=== PATIENT | female | born 1975 | race Caucasian/White ===

== ENCOUNTER 2021-03-05 15:16 | Outpatient (REF) | payer OTHER, SELFPAY | END 2021-03-05 15:17 | disposition home or self-care (01) | LOC: HO.LAB 15:16 | PROVIDERS: PCP Internal Medicine; Visit Provider Internal Medicine | DX: Z00.00 Encounter for general adult medical examination without abnormal findings (principal); I10 Essential (primary) hypertension; J45.909 Unspecified asthma, uncomplicated; N92.4 Excessive bleeding in the premenopausal period | CPT/HCPCS: 36415; 84443 ==

== ENCOUNTER 2021-09-14 11:33 | Outpatient (REF) | payer OTHER, SELFPAY ==
--- NOTE | ~2021-09-14 | MM_ITS ---
EXAMINATION: MM SCREENING DIGITAL BREAST TOMOSYNTHESIS, BILATERAL CLINICAL INFORMATION: Screening. Asymptomatic. Benign ultrasound-guided left breast biopsy 02/16/2019 (benign breast parenchyma with portion of apocrine cyst wall and associated fibrosis with mild chronic inflammation; negative for atypia and malignancy). The lifetime risk of breast cancer based on the Tyrer-Cuzick Model is 12%. COMPARISON: Mammography: 02/16/2019 , 01/18/2019; ultrasound 01/18/2019, ultrasound-guided core biopsy 02/16/2019; outside mammography 07/11/2018, 07/10/2018 ([facility]). TECHNIQUE: Digital breast tomosynthesis is performed in both the craniocaudal and mediolateral oblique views along with computer-aided detection (CAD). Synthesized 2D images are generated from the tomosynthesis. FINDINGS: There are scattered areas of fibroglandular density (ACR BI-RADS breast composition Category b). Parenchymal pattern is similar to outside exam. There is scattered fibronodular densities without significant change. There is no significant mass or architectural abnormality or abnormal calcifications. Biopsy clip marker is again noted mid lower inner left breast. The axilla and skin contours are unremarkable. MM/MM tomosynthesis screening BI IMPRESSION: No significant changes from prior studies. ASSESSMENT: BI-RADS 2: Benign RECOMMENDATION: Routine annual mammography screening. This patient's information was entered into a reminder system with a target due date for their next mammogram.
== END 2021-09-14 11:34 | disposition home or self-care (01) ==
LOC: HO.MAMMO 11:33
PROVIDERS: Visit Provider Internal Medicine
DX: Z12.31 Encounter for screening mammogram for malignant neoplasm of breast (principal)
CPT/HCPCS: 77063; 77067

== ENCOUNTER → 2021-10-08 11:14 | Outpatient (BNVA) | payer OTHER, SELFPAY | PROVIDERS: PCP Internal Medicine; Referring Provider Internal Medicine; Visit Provider Surgery | DX: L72.0 Epidermal cyst (principal) ==

== ENCOUNTER → 2022-03-16 15:20 | Outpatient (BNVA) | payer OTHER, SELFPAY | PROVIDERS: PCP Internal Medicine; Visit Provider Dietitian, Registered | DX: E66.9 Obesity, unspecified (principal); Z68.38 Body mass index [BMI] 38.0-38.9, adult | CPT/HCPCS: 97802 ==

== ENCOUNTER 2022-03-19 09:38 | Outpatient (REF) | payer OTHER, SELFPAY ==
--- NOTE | ~2022-03-19 | XR_ITS ---
EXAMINATION: XR CHEST CLINICAL INFORMATION: Obesity COMPARISON: None TECHNIQUE: 2 views of the chest were obtained. FINDINGS: No significant abnormality is noted involving the heart, lungs, mediastinum, bony thorax or soft tissues. XR/XR chest 2V IMPRESSION: Unremarkable examination.
[2022-03-19 10:05] LABS: MANUAL DIFF FLAG NO
--- NOTE | 2022-03-19 10:09 | ECG_ITS ---
Test Reason : e66.9 Blood Pressure : / mmHG Vent. Rate : 080 BPM Atrial Rate : 080 BPM P-R Int : 152 ms QRS Dur : 094 ms QT Int : 398 ms P-R-T Axes : 028 015 022 degrees QTc Int : 459 ms Normal sinus rhythm Minimal voltage criteria for LVH, may be normal variant ( R in aVL ) Borderline ECG No previous ECGs available Referred By: Gibson Degroot Electronically Signed By:YEVGENIY VALERO MD
[2022-03-19 10:13] LABS: Basophils Percent Auto 0.6 % (0-2); Eosinophils Absolute Auto 0.1 X10*3/uL (0.0-0.4); Hemoglobin 15.7 g/dl (12.0-16.0); Imm Gran Abs Auto 0.01 X10*3/uL (0.00-0.03); Imm Gran Pct Auto 0.1 % (0.0-0.4); Lymphocytes Absolute Auto 1.9 X10*3/uL (1.2-4.9); Lymphocytes Percent Auto 27.5 % (20-40); Mean Corpuscular HGB Conc 34.1 g/dl (31.0-35.0); Mean Corpuscular Hemoglobin 29.3 pg (27.0-33.0); Mean Platelet Volume 10.5 fL (9.4-12.3); Monocytes Absolute Auto 0.5 X10*3/uL (0.1-1.2); Monocytes Percent Auto 7.6 % (2-11); Neutrophils Absolute Auto 4.4 x10*3/uL (2.0-8.3); Neutrophils Percent Auto 63.2 % (45-73); Platelet Count 326 X10*3/uL (160-400); Red Blood Count 5.35 X10*6/uL (4.20-5.50); White Blood Count 6.9 X10*3/uL (4.8-10.8)
[2022-03-19 10:29] LABS: Estimated Average Glucose 105 mg/dL; Hemoglobin A1c % 5.3 %
[2022-03-19 10:41] LABS: Alanine Aminotransferase 59 U/L (0-31); Albumin Level 4.9 g/dL (3.5-5.0); Alkaline Phosphatase 105 U/L (39-117); Anion Gap 20 (12-20); Aspartate Amino Transferase 36 U/L (5-31); Bilirubin Total 0.6 mg/dL (0.0-1.0); Blood Urea Nitrogen 34 mg/dL (9-16); C Reactive Protein 1.66 mg/dL (< or = 0.50); Calcium 10.3 mg/dL (8.4-10.2); Carbon Dioxide 24 mmol/L (22-29); Chloride 101 mmol/L (96-108); Cholesterol 172 mg/dL; Estimated Glomerular Filt Rate 57; Glucose Random 94 mg/dL (60-115); HDL Cholesterol 53 mg/dL; Iron 95 mcg/dL (30-160); LDL Cholesterol Calculated 107 mg/dl; Percent Iron Saturation 25 % (15-50); Potassium 3.8 mmol/L (3.3-5.1); Sodium 141 mmol/L (135-145); Total Iron Binding Capacity 379 mcg/dL (228-428); Total Protein 8.4 g/dL (6.5-8.0); Triglycerides 64 mg/dL; Unsaturated Iron Binding 284 ug/dL
[2022-03-19 11:05] LABS: Ferritin 234 ng/mL (10-250); TSH reflex Free T4 1.06 uIU/mL (0.32-4.0); Vitamin D 25-OH Total 31.7 ng/mL (>30)
[2022-03-19 11:11] LABS: Folate 17.9 ng/mL (> or = 4.0); Vitamin B12 1339 pg/mL (200-900)
[2022-03-19 11:36] LABS: Insulin 33 uU/mL (2-29)
[2022-03-21 12:56] LABS: Calcium (PTHI) 10.2 mg/dL (8.6-10.2); PTHI 59 pg/mL (16-77)
[2022-03-24 06:22] LABS: Zinc 76 mcg/dL (60-130)
[2022-03-24 20:31] LABS: Vitamin A 54 mcg/dL (38-98)
[2022-03-25 06:21] LABS: Vitamin B1 12 nmol/L (8-30)
== END 2022-03-19 09:39 | disposition home or self-care (01) ==
LOC: HO.LAB 09:38
PROVIDERS: PCP Internal Medicine; Visit Provider Surgery
DX: K21.9 Gastro-esophageal reflux disease without esophagitis (principal); E66.9 Obesity, unspecified; Z68.38 Body mass index [BMI] 38.0-38.9, adult; I10 Essential (primary) hypertension
CPT/HCPCS: 36415; 71046; 80053; 80061; 82306; 82607; 82728; 82746; 83036; 83525; 83540; 83970; 84425; 84443; 84590; 84630; 85025; 86140; 93005

== ENCOUNTER → 2022-03-23 15:00 | Outpatient (BNVA) | payer OTHER, SELFPAY | PROVIDERS: PCP Internal Medicine; Visit Provider Counselor Mental Health | DX: F43.20 Adjustment disorder, unspecified (principal); E66.9 Obesity, unspecified; K21.9 Gastro-esophageal reflux disease without esophagitis; I10 Essential (primary) hypertension | CPT/HCPCS: 90791 ==

== ENCOUNTER 2022-03-31 10:51 | Outpatient (REF) | payer OTHER, SELFPAY ==
[2022-04-03 11:12] LABS: H Pylori Breath Test Negative (Negative)
== END 2022-03-31 10:52 | disposition home or self-care (01) ==
LOC: HO.LNP 10:51
PROVIDERS: Visit Provider Surgery
DX: K21.9 Gastro-esophageal reflux disease without esophagitis (principal); E66.9 Obesity, unspecified; Z68.38 Body mass index [BMI] 38.0-38.9, adult; I10 Essential (primary) hypertension
CPT/HCPCS: 83013

== ENCOUNTER 2022-04-14 08:51 | Outpatient (REF) | payer OTHER, SELFPAY ==
--- NOTE | ~2022-04-14 | FL_ITS ---
EXAMINATION: XR FLUOROSCOPY UPPER GI WITH AIR CLINICAL INFORMATION: Obesity COMPARISON: None TECHNIQUE: Upper GI was performed using thin and thick barium and effervescent granules. FINDINGS: Esophageal motility is normal. No hernia is seen. There is gastroesophageal reflux. The stomach and duodenum are normal-appearing. No fold thickening, mass, ulcer or stricture is seen. FLUOROSCOPY TIME: 0.5 minutes DOSE AREA PRODUCT: 4.6 agosto per centimeter squared. 24 saved fluoroscopic images. FL/FL upper GI w air IMPRESSION: Gastroesophageal reflux otherwise unremarkable exam.
--- NOTE | ~2022-04-14 | US_ITS ---
EXAMINATION: US COMPLETE ABDOMEN WITH LIVER ELASTOGRAPHY CLINICAL INFORMATION: Obesity COMPARISON: None. TECHNIQUE: Real-time imaging of the abdominal viscera. Noninvasive ultrasound liver fibrosis assessment is performed using Giovanna ElastPQ point quantification shear wave elastography (2D-SWE) with a C5-2 MHz transducer. Multiple elastography samples are obtained. FINDINGS: PANCREAS: Normal. ABDOMINAL AORTA: The proximal, middle, and distal aortic segments are normal in caliber. INFERIOR VENA CAVA: Visualized portions are normal. LIVER: Liver echotexture is increased probably representing fatty infiltration. There is a 5 mm cyst in the right lobe. There are areas of focal fatty sparing. No other focal lesion or intrahepatic biliary duct dilatation. The right lobe measures 17 cm in length. The left lobe measures 13 cm in length. Portal flow is normal/hepatopedal Shear wave liver elastography median stiffness is 1.5 m/s (reference: normal median stiffness is 1.3 m/s or less). IQR/median stiffness to assess sampling precision is 0.07 (reference: good quality data set is IQR/median stiffness of 0.15 or less). GALLBLADDER: The gallbladder is normal in size. There is a 5 x 3 x 5 mm echogenic density adjacent to the gallbladder wall that does not move or shadow suggestive of gallbladder wall polyp. No definite gallstones.. COMMON BILE DUCT: Normal in caliber measuring 0.5 cm in diameter. RIGHT KIDNEY: Normal. No hydronephrosis. No renal calculi or focal parenchymal lesions. The kidney measures 12 cm in maximum dimension. LEFT KIDNEY: Normal. No hydronephrosis. No renal calculi or focal parenchymal lesions. The kidney measures 11.4 cm in maximum dimension. SPLEEN: Normal. The spleen measures 10.7 cm in maximum dimension. FREE FLUID: None. US/US abdomen comp w elastography IMPRESSION: 1. Impression: Echogenic liver probably representing fatty infiltration. Small cyst in the right lobe of the liver. Small gallbladder wall polyp. 2. Liver elastography: Adequate liver sampling In the absence of other known clinical signs, rules out compensated advanced chronic liver disease. REFERENCE: Society of Radiologists in Ultrasound Liver Stiffness Thresholds (2020): LIVER STIFFNESS THRESHOLDS: *Liver Stiffness equal or less than 1.3 m/s: High probability of being normal. *Liver Stiffness less than 1.7 m/s: In the absence of other known clinical signs, rules out compensated advanced chronic liver disease. *Liver Stiffness 1.7-2.1 m/s: Suggestive of compensated advanced chronic liver disease but need further test for confirmation. *Liver Stiffness over 2.1 m/s: Rules in compensated advanced chronic liver disease. *Liver Stiffness over 2.4 m/s: Suggestive of clinically significant portal hypertension. QUALITY OF DATA SET: *IQR/Median value equal or less than 0.15 implies a quality data set. *IQR/Median value over 0.15 implies a poor quality data set. SIGNIFICANT CHANGE FROM PRIOR EXAM: Significant change if liver stiffness measurement is 10% or greater from prior exam. OTHER CONSIDERATIONS: The stage of liver fibrosis may be overestimated in the setting of acute hepatitis, liver inflammation, elevated liver function tests, hepatic vascular congestion, obstructive cholestasis, non-fasting state, and infiltrative diseases such as amyloidosis and lymphoma. In some patients with NAFLD, the liver stiffness thresholds for compensated advanced chronic liver disease may be lower. In causes other than viral hepatitis and NAFLD, liver stiffness thresholds are not well established.
== END 2022-04-14 08:52 | disposition home or self-care (01) ==
LOC: HO.US 08:51
PROVIDERS: Visit Provider Surgery
DX: Z01.818 Encounter for other preprocedural examination (principal); K21.9 Gastro-esophageal reflux disease without esophagitis; E66.9 Obesity, unspecified; Z68.38 Body mass index [BMI] 38.0-38.9, adult; I10 Essential (primary) hypertension
CPT/HCPCS: 74246; 76705; 76981

== ENCOUNTER → 2022-04-19 14:29 | Outpatient (BNVA) | payer OTHER, SELFPAY | PROVIDERS: PCP Internal Medicine; Visit Provider Dietitian, Registered | DX: E66.9 Obesity, unspecified (principal) | CPT/HCPCS: 97803 ==

== ENCOUNTER → 2022-06-21 08:24 | Outpatient (BNVA) | payer OTHER, SELFPAY | PROVIDERS: PCP Internal Medicine; Visit Provider Surgery | DX: Z13.89 Encounter for screening for other disorder (principal) ==

== ENCOUNTER → 2022-06-22 15:00 | Outpatient (BNVA) | payer OTHER, SELFPAY | PROVIDERS: PCP Internal Medicine; Visit Provider Counselor Mental Health | DX: F43.20 Adjustment disorder, unspecified (principal); E66.9 Obesity, unspecified | CPT/HCPCS: 90832 ==

== ENCOUNTER → 2022-07-02 11:10 | Outpatient (BNVA) | payer OTHER, SELFPAY | PROVIDERS: PCP Internal Medicine; Referring Provider Internal Medicine; Visit Provider Physician Assistant Surgical | DX: Z13.89 Encounter for screening for other disorder (principal) ==

== ENCOUNTER → 2022-07-07 09:11 | Outpatient (BNVA) | payer OTHER, SELFPAY | PROVIDERS: PCP Internal Medicine; Visit Provider Surgery | DX: Z13.89 Encounter for screening for other disorder (principal) ==

== ENCOUNTER → 2022-07-09 13:01 | Outpatient (BNVA) | payer OTHER, SELFPAY | PROVIDERS: PCP Internal Medicine; Visit Provider Surgery | DX: Z13.89 Encounter for screening for other disorder (principal) ==

== ENCOUNTER 2022-07-22 06:10 | Inpatient (IN) | payer OTHER, SELFPAY ==
[2022-07-09 10:14] VITALS: BMI 36.1
[2022-07-15 09:56] LABS: MANUAL DIFF FLAG NO
[2022-07-15 10:30] LABS: Basophils Percent Auto 0.5 % (0-2); Eosinophils Absolute Auto 0.1 X10*3/uL (0.0-0.4); Eosinophils Percent Auto 0.9 % (0-4); Hematocrit 47.6 % (37.0-47.0); Imm Gran Abs Auto 0.04 X10*3/uL (0.00-0.03); Imm Gran Pct Auto 0.5 % (0.0-0.4); Lymphocytes Absolute Auto 2.3 X10*3/uL (1.2-4.9); Lymphocytes Percent Auto 28.3 % (20-40); Mean Corpuscular HGB Conc 33.6 g/dl (31.0-35.0); Mean Corpuscular Hemoglobin 29.4 pg (27.0-33.0); Mean Corpuscular Volume 87.3 fL (80.0-98.0); Mean Platelet Volume 10.8 fL (9.4-12.3); Monocytes Absolute Auto 0.5 X10*3/uL (0.1-1.2); Monocytes Percent Auto 6.8 % (2-11); Neutrophils Absolute Auto 5.1 x10*3/uL (2.0-8.3); Platelet Count 301 X10*3/uL (160-400); Red Blood Count 5.45 X10*6/uL (4.20-5.50); Red Cell Distribution Width 13.2 % (11.0-16.0)
[2022-07-15 10:38] LABS: Partial Thromboplastin Time 33.7 SEC (26.0-36.4)
[2022-07-15 10:51] LABS: Estimated Average Glucose 105 mg/dL; Hemoglobin A1c % 5.3 %
[2022-07-15 11:08] LABS: Alanine Aminotransferase 41 U/L (0-31); Albumin Level 4.7 g/dL (3.5-5.0); Alkaline Phosphatase 108 U/L (39-117); Anion Gap 17 (12-20); Aspartate Amino Transferase 22 U/L (5-31); Bilirubin Total 0.7 mg/dL (0.0-1.0); Blood Urea Nitrogen 35 mg/dL (9-16); C Reactive Protein 2.63 mg/dL (< or = 0.50); Calcium 10.1 mg/dL (8.4-10.2); Carbon Dioxide 24 mmol/L (22-29); Chloride 104 mmol/L (96-108); Cholesterol 191 mg/dL; Estimated Glomerular Filt Rate 56; Glucose Random 76 mg/dL (60-115); HDL Cholesterol 51 mg/dL; LDL Cholesterol Calculated 124 mg/dl; Potassium 4.4 mmol/L (3.3-5.1); Sodium 141 mmol/L (135-145); Triglycerides 81 mg/dL
[2022-07-15 11:29] LABS: Insulin 13 uU/mL (2-29); TSH reflex Free T4 0.88 uIU/mL (0.32-4.0)
--- NOTE | 2022-07-17 20:48 | MHC.SHP ---
Pre-Procedural Eval Section A Date of Service: 07/17/22 The patient is an INPATIENT: Yes The History & Physical has been completed within 30 days and I have reviewed it.: Yes Section B Chief Complaint: Obesity, unspecified Relevant Family History (Specify if Yes): No Relevant Social History: None Present Medications: None Medical History: No relevant PMH History of Previous Operations: No relevant previous surgery Allergies: Allergies Allergy/AdvReac Type Severity Reaction Status Date / Time aspirin Allergy Mild Swelling Verified 07/09/22 10:01 Review of Systems Sugical H&P ROS: Negative: Constitution, Cardiovascular, Respiratory, Neurological, Psychiatric, Hem-Onc, Allergic/Immunologic, Gastrointestinal, Genitourinary, Musculoskeletal, Integumentary, Endocrine and Eyes/Ears/Nose/Throat Exam Surgical H&P Exam: Normal: HEENT, Normal: Heart, Normal: Lungs, Normal: Extremities, Normal: Abdomen, Normal: Skin and Normal: Neurological Plan Diagnosis/Plan: Unchanged I have reviewed the history and physical and performed a pertinent physical examination on my patient. No changes have occurred unless specified. Time Spent With Patient Time: Total time managing care of this patient today ____ minutes.
--- NOTE | 2022-07-21 10:16 | HO.ANESPROP2 ---
Documented by User: Noreen Patel NP 07/21/22 10:18 HPI - Anesthesia Eval Consult details Narrative: 47yo F for Gastrectomy Sleeve,possible diaphragmatic hernia,possible ventral hernia,possible open PMFSH Active Problems Active Problems: All Active Problems (Updated 07/09/22 @ 10:00 by Kathi Blake, RN) Epidermal inclusion cyst (Acute) Obesity (Acute) BMI 38.0-38.9,adult (Acute) Adjustment disorder, unspecified (Acute) BMI 37.0-37.9, adult (Acute) BMI 36.0-36.9,adult (Acute) Hypertension (Acute) GERD (gastroesophageal reflux disease) (Acute) Past Medical History Medical History (Updated 07/09/22 @ 10:00 by Kathi Blake RN) Asthma GERD (gastroesophageal reflux disease) Hypertension PONV (postoperative nausea and vomiting) Family History Family History (Updated 02/23/22 @ 16:11 by Loren Dodson CMA) Mother Hypertension Father Heart attack Surgical History Surgical History History of hysterectomy (03/2021) Social History Social History (Updated 02/23/22 @ 16:12 by Loren Dodson CMA) Are you a primary doggy daycare activities director to a significant other at home: No Do you presently have visiting nurse or other home services: No Alcohol intake: never Patient Tobacco Use Status: Never used Tobacco Second Hand Smoke Exposure: No Use of substances other than those prescribed or required for medical reasons: No Have you been hit, kicked, punched, or otherwise hurt by someone within the past year? If so, by whom?: No Are you DNR?: No Advance Directives: No Advance Directives Information Provided: Yes (Info mailed w/ pre op instructions) Advance Directives on File: No Recently lost weight without trying: No How much weight loss: 2-13 pounds Eating poorly because of decreased appetite: No Nutrition screen score: 1 Nutrition Risks: No Nutritional Risk Patient : No : No Poor oral hygiene: No Meds Allergies Allergy/AdvReac Type Severity Reaction Status Date / Time aspirin Allergy Mild Swelling Verified 07/09/22 10:01 Home Medications Medication Instructions Recorded Confirmed Last Taken Type albuterol sulfate 90 mcg/actuation 2 puff PO QID 10/08/21 07/09/22 Unknown History aerosol inhaler amlodipine 10 mg tablet 10 mg PO DAILY 10/08/21 07/09/22 07/22/22 05:30 History losartan 100 1 tab PO DAILY 10/08/21 07/09/22 Unknown History mg-hydrochlorothiazide 25 mg tablet albuterol sulfate 2.5 mg/3 mL 2.5 mg inhalation Q4-6H PRN 07/09/22 07/09/22 Unknown History (0.083 %) solution for nebulization Wheezing ascorbic acid (vitamin C) 1,000 mg 1,000 mg PO DAILY 07/09/22 07/09/22 Unknown History tablet (Vitamin C) cholecalciferol (vitamin D3) 50 50 mcg PO DAILY 07/09/22 07/09/22 Unknown History mcg (2,000 unit) capsule (Vitamin D3) coenzyme Q10 100 mg capsule 300 mg PO DAILY 07/09/22 07/09/22 Unknown History (CoQ-10) collagen 5,000 PO DAILY 07/09/22 Unknown History multivit with minerals-iron 18 1 tab PO DAILY 07/09/22 07/09/22 Unknown History mg-folic ac 400 mcg-vit K 25 mcg tablet (One Daily Women's) Exam Exam Date and Time: July 21, 2022 1016 Height,Weight and Vital Signs: Height 5 ft 1 in Weight 86.636 kg Pertinent Lab Results Pertinent Lab Results: Laboratory Tests 07/15/22 07/15/22 07/15/22 09:52 09:54 09:54 WBC 8.0 RBC 5.45 Hgb 16.0 Hct 47.6 H MCV 87.3 MCH 29.4 MCHC 33.6 RDW 13.2 Plt Count 301 MPV 10.8 Immature Gran % (Auto) 0.5 H Neut % (Auto) 63.0 Lymph % (Auto) 28.3 Lamb % (Auto) 6.8 Eos % (Auto) 0.9 Baso % (Auto) 0.5 Lymph # (Auto) 2.3 Lamb # (Auto) 0.5 Eos # (Auto) 0.1 Baso # (Auto) 0.0 Abs Immat Gran (auto) 0.04 H Absolute Neuts (auto) 5.1 Absolute Nucleated RBC 0.000 Nucleated RBC % (auto) 0.0 PT 12.0 INR 1.0 APTT 33.7 Sodium Potassium Chloride Carbon Dioxide Anion Gap BUN Creatinine Estim Creat Clear Calc Estimated GFR Random Glucose Estimat Average Glucose Hemoglobin A1c % Insulin Level Calcium Total Bilirubin AST ALT Alkaline Phosphatase C-Reactive Protein Total Protein Albumin Triglycerides Cholesterol LDL Cholesterol, Calc HDL Cholesterol TSH Blood Type O Positive Antibody Screen NEGATIVE 07/15/22 07/15/22 09:54 09:54 WBC RBC Hgb Hct MCV MCH MCHC RDW Plt Count MPV Immature Gran % (Auto) Neut % (Auto) Lymph % (Auto) Lamb % (Auto) Eos % (Auto) Baso % (Auto) Lymph # (Auto) Lamb # (Auto) Eos # (Auto) Baso # (Auto) Abs Immat Gran (auto) Absolute Neuts (auto) Absolute Nucleated RBC Nucleated RBC % (auto) PT INR APTT Sodium 141 Potassium 4.4 Chloride 104 Carbon Dioxide 24 Anion Gap 17 BUN 35 H Creatinine 1.06 Estim Creat Clear Calc 67.0 Estimated GFR 56 Random Glucose 76 Estimat Average Glucose 105 Hemoglobin A1c % 5.3 Insulin Level 13 Calcium 10.1 Total Bilirubin 0.7 AST 22 ALT 41 H Alkaline Phosphatase 108 C-Reactive Protein 2.63 H Total Protein 8.0 Albumin 4.7 Triglycerides 81 Cholesterol 191 LDL Cholesterol, Calc 124 HDL Cholesterol 51 TSH 0.88 Blood Type Antibody Screen Narrative Narrative: EKG 02/2022 Vent. Rate : 080 BPM ? ? Atrial Rate : 080 BPM ?? P-R Int : 152 ms? QRS Dur : 094 ms ? ? QT Int : 398 ms ? ? ? P-R-T Axes : 028 015 022 degrees ?? QTc Int : 459 ms ? Normal sinus rhythm Minimal voltage criteria for LVH, may be normal variant ( R in aVL ) Borderline ECG No previous ECGs available Assessment and Plan Assessment Anesthesia Assessment: Chart Reviewed Documented by User: Maddi Santana MD 07/22/22 07:21 [facility] Past Medical History Medical History (Updated 07/09/22 @ 10:00 by Kathi Blake RN) Asthma GERD (gastroesophageal reflux disease) Hypertension PONV (postoperative nausea and vomiting) Family History Family History (Updated 02/23/22 @ 16:11 by Loren Dodson CMA) Mother Hypertension Father Heart attack Family history of problems with anesthesia: No Surgical History Surgical History History of hysterectomy (03/2021) History of Problems with Anesthesia: No Social History Social History (Updated 02/23/22 @ 16:12 by Loren Dodson CMA) Are you a primary doggy daycare activities director to a significant other at home: No Do you presently have visiting nurse or other home services: No Alcohol intake: never Patient Tobacco Use Status: Never used Tobacco Second Hand Smoke Exposure: No Use of substances other than those prescribed or required for medical reasons: No Have you been hit, kicked, punched, or otherwise hurt by someone within the past year? If so, by whom?: No Are you DNR?: No Advance Directives: No Advance Directives Information Provided: Yes (Info mailed w/ pre op instructions) Advance Directives on File: No Recently lost weight without trying: No How much weight loss: 2-13 pounds Eating poorly because of decreased appetite: No Nutrition screen score: 1 Nutrition Risks: No Nutritional Risk Patient : No : No Poor oral hygiene: No Meds Allergies Allergy/AdvReac Type Severity Reaction Status Date / Time aspirin Allergy Mild Swelling Verified 07/09/22 10:01 Home Medications Medication Instructions Recorded Confirmed Last Taken Type albuterol sulfate 90 mcg/actuation 2 puff PO QID 10/08/21 07/09/22 Unknown History aerosol inhaler amlodipine 10 mg tablet 10 mg PO DAILY 10/08/21 07/09/22 07/22/22 05:30 History losartan 100 1 tab PO DAILY 10/08/21 07/09/22 Unknown History mg-hydrochlorothiazide 25 mg tablet albuterol sulfate 2.5 mg/3 mL 2.5 mg inhalation Q4-6H PRN 07/09/22 07/09/22 Unknown History (0.083 %) solution for nebulization Wheezing ascorbic acid (vitamin C) 1,000 mg 1,000 mg PO DAILY 07/09/22 07/09/22 Unknown History tablet (Vitamin C) cholecalciferol (vitamin D3) 50 50 mcg PO DAILY 07/09/22 07/09/22 Unknown History mcg (2,000 unit) capsule (Vitamin D3) coenzyme Q10 100 mg capsule 300 mg PO DAILY 07/09/22 07/09/22 Unknown History (CoQ-10) collagen 5,000 PO DAILY 07/09/22 Unknown History multivit with minerals-iron 18 1 tab PO DAILY 07/09/22 07/09/22 Unknown History mg-folic ac 400 mcg-vit K 25 mcg tablet (One Daily Women's) Exam Airway Mallampati Class: II TM Dist: >3cm Neck ROM: Full Heart: rrr Lungs: cta Assessment and Plan Assessment Anesthesia Assessment: Anesthesia Plan Discussed Final Anesthetic Review Family History of Problems with Anesthesia: No History of Problems with Anesthesia: No NPO: Yes ASA Class: II Final Preanesthetic Review: No Changes in Pt Med Stat, Meds/Allgs Chart Reviewed, Consent Obtained/Reviewed and Anes Risks/Benef Reviewed Patient Risk: Intermediate Procedure Risk: Intermediate Anesthetic Plan Anesthetic Plan: GA and Regional Block Disposition: Standard PACU
[2022-07-21 13:58] LABS: COVID-19 Test Negative (Negative); IDNOW Serial# 16C4AD1C
[2022-07-22] VITALS (11 sets, daily range): BP systolic 121–145; BP diastolic 61–82; PULSE 76–96; RESP 16–26; TEMP 36.1–37.1; O2SAT 95–100
[2022-07-22] MEDS: Scopolamine 1.5 MG PATCH.TD.3 TRANSDERMA (06:38)
[2022-07-22] MEDS: Lactated Ringers 1,000 ML 999 ML IV (06:46)
--- NOTE | 2022-07-22 07:36 | PM.OP ---
Brief Operative Note Date of Service: 07/22/22 Pre-op diagnosis: Severe obesity with comorbidities (see below) Post-op diagnosis: same Procedure: INITIAL PATIENT BMI ON PRESENTATION AT OUR OFFICE: 38.1 kg/m2 LAST BMI BEFORE SURGERY: 34.8 kg/m2 COMORBIDITIES: GERD, hypertension, liver steatosis, asthma, gallbladder polyp ?The patient presented to the Weight Management Program with significant obesity that was negatively impacting the patient's comorbidities as listed above.? The program is a phased program with a special focus on preoperative medical weight management to promote substantial weight loss and prepare the patients for the second phase of the program: bariatric surgery. The patient participated in an intensive weekly lifestyle ?intervention and exercise program during which the patient ?has lost between the initial office visit and the last preoperative visit 20.5 lbs, or 10% of initial actual body weight. It was deemed appropriate for the patient to now have bariatric surgery. In light of the current Covid-19 pandemic and the well documented strong association of obesity and increased risk of worse outcomes if infected with Covid-19 (REFERENCES:https://pubmed.ncbi.nlm.nih.gov/31634433/,?https://pubmed.ncbi.nlm.nih.gov/13182065/), any delay in undergoing bariatric surgery may lead to the patient's worsening health condition and increased?risk of more severe Covid-19 disease if infected. In addition a recent?study from [facility] published in [facility] on 05/18/2021 ([email or web address]) found that, among patients with obesity, substantial weight loss achieved with surgery was associated with improved outcomes of COVID-19 infection. The findings suggest that obesity can be a modifiable risk factor for the severity of COVID-19 infection. In addition, the patient met the BMI-criteria for bariatric surgery based on the BMI on initial presentation. The patient should not be penalized for achieving such weight loss because ?it is not sustainable long-term without surgical intervention and it was achieved in preparation for bariatric surgery ?under my direction and based on my published research ([email or web address]).[email or web address] and?[email or web address].soard.org/article/[email or web address])17487-X/pdf) ?that a 10% preoperative weight loss improves long-term weight loss after surgery and reduces perioperative complications.? Insurance carriers such as [facility] have endorsed my recommendations ?and have included in their policies criteria to include a 10% preoperative weight loss requirement. PROCEDURE: Esophago-gastroscopy, laparoscopic sleeve gastrectomy and laparoscopic gastropexy INDICATIONS: This is a 47 year-old female who was electively scheduled for laparoscopic, possibly open sleeve gastrectomy. The risks and complications of the procedure were discussed with the patient in advance, particularly the possibility of ; pulmonary embolism; staple line leak; bleeding; GERD; cardiac, pulmonary, or renal complications; as well as long-term problems such as insufficient weight loss, vitamin deficiency, strictures, or ulcers. The patient understood all the risks, and was in agreement to proceed with surgery. DESCRIPTION OF PROCEDURE: After informed consent was obtained from the patient, the patient was given preoperative antibiotics, and was transferred to the operating room. After successful induction of general anesthesia, pneumatic compression devices were placed on both lower extremities. An upper endoscopy was performed next. The oropharynx and esophagus appeared to be within normal limits. There was no diaphragmatic hernia present consistent with the findings of the preoperative upper GI. The stomach was entered. Then after all fluid and air were suctioned and the stomach was fully decompressed, the scope was withdrawn and secured in the mid esophagus. The patient was then prepped and draped in the usual sterile manner, and abdominal access was established at the right upper quadrant with the Sonny technique. A 12 mm blunt port was inserted, and the abdomen was insufflated with CO2 to a pressure of 15 mmHg. Under direct visualization, additional ports were placed, specifically two 5 mm Versi-step ports to the left upper quadrant, and a 5 mm Versi-Step port to the right upper quadrant. 1% lidocaine plain was used to infiltrate all port sites as well as all fascia defects. Following that, the patient was placed in a steep reverse Trendelenburg position. An additional 5 mm port was placed to the right flank for the Mediflex retractor that was used to retract the left lobe of the liver. She had severe hepatomegaly that made exposure quite difficult. The gastro-esophageal fat pad was opened with the ultrasonic device (Thunderbeat, Olympus) and the anterior esophagus and hiatus were exposed. The angle of His was opened with the ultrasonic device the fundus of the stomach from any diaphragmatic and splenic attachments. I then opened the gastrocolic ligament between the transverse colon and the greater curvature of the stomach with the ultrasonic device to enter the lesser sac and facilitate the ligation of the short gastric vessels. I started at a mid-point along the greater curvature and using the Thunderbeat, all short gastric vessels were divided all the way to the angle of His until the left luciana was completely dissected at its entirety. Disection near the upper pole of the spleen was very difficult because the upper pole splenic artery and vein were densely attached to the gastric wall. Nevertheless I was able to separate them without injuring them. I then divided the gastro-colic ligament distally to a distance of about 3-4 cm proximal to the pylorus. The stomach was then divided transversely with one Endo GRISELDA-45 purple, two GRISELDA-45 orange loads and three GRISELDA-60 articulating orange loads using the AEON stapler and loads. Every effort was made that the gastric sleeve had a tubular shape and an even caliber throughout. Once the sleeve resection was completed, the staple line of the gastric sleeve was reinforced with Hemoclips. The resected stomach was retrieved without difficulty from the Sonny port. A gastropexy was then performed in order to prevent postoperative GERD and partial gastric volvulus. Several interrupted 2.0 Surgidac sutures were placed between the sleeve's staple line and the previously divided greater omentum and gastro-colic ligament using the Endo-Stitch device. ?An upper endoscopy was performed. There was no narrowing at the GE junction. The scope was easily advanced all the way to the pylorus which was clearly visualized. There was no narrowing anywhere and the sleeve's caliber was even throughout. The sleeve's staple line was inspected and there was no evidence of ischemia, bleeding or dehiscence. At that point the gastroscope was withdrawn from the patient?s mouth while we were decompressing the bowel and the stomach from any remaining air. I looked into the lesser sac to see how the sleeve was situating and it was situating well. There was no bleeding from the staple line, spleen, or short gastric vessels. The Mediflex retractor was removed, and the undersurface of the liver was inspected and there was no bleeding. The patient was placed in supine position. I closed the fascial defect of the 12 mm port site with a figure of eight #1 Polysorb suture. Then 30cc of Ropivacaine plain with 10 mg of Dexamethasone were used to infiltrate the fascial closure as well as all skin incisions. A total of 7ml of Zynrelef was applied in the Sonny wound. At this point, the abdomen was deflated, all ports were removed under direct vision, and no bleeding was noted from any of the port sites. The skin incisions were irrigated with saline and were closed with 4-0 absorbable monofilament sutures. Steri-Strips and OpSites were used to cover all incisions. The patient was extubated and was transferred in stable condition to the recovery room for further care. I was present and performed all angel parts of the procedure. Ms. Grubbs was the laboratory chemical assistant. There were no residents to assist with this case. Norm Degroot MD, PhD, FACS Surgeon: Gibson Degroot MD Anesthesia: GETA, local and other (TAP block and 7ml Zynrelef) Was an Fire Observer used for this Procedure?: No Fire Observer: Angely Grubbs Estimated blood loss (mL): 10 IV fluids (mL): 2,500 Urine output (mL): 0 (No Mata to record output) Pathology: other (Stomach) Condition: stable Disposition: PACU
--- NOTE | 2022-07-22 07:40 | PM.PNGS ---
Subjective Subjective Date of Service: 07/23/22 Interval history: Patient has mild incisional pain, but was able to ambulate and use the incentive spirometer. She is tolerating phase 1 bariatric diet Physical Exam Vital Signs: Vital Signs: Last Vital Signs Temp 98.7 F 07/22/22 06:35 Pulse 94 07/22/22 06:35 Resp 16 07/22/22 06:35 BP 145/78 H 07/22/22 06:35 Pulse Ox 97 07/22/22 06:35 O2 Del Method 07/22/22 06:35 BMI result Body Mass Index 36.1 GI: Inspection: Yes normal to inspection, Yes incision (clean, dry and intact) and Yes obesity Palpation (GI): Soft to palpation Extrem: Right lower extremity: normal to inspection (no calf tenderness) Left lower extremity: normal to inspection (no calf tenderness) Objective Data Active Medications Albuterol Sulfate (Albuterol Sulfate (0.083%) 2.5 Mg/3 Ml Vial.Neb) 2.5 mg INHALE ONCE PRN PRN Reason: Shortness of Breath/Wheezing Fentanyl (Fentanyl Citrate/Pf 100 Mcg/2 Ml Vial) 25 mcg IVPUSH Q5M PRN; Protocol PRN Reason: Pain, Moderate (Pain Scale 4-6 Lactated Ringer's (Lr) 1,000 mls @ 100 mls/hr IVCONT .Q10H KELSEA Lactated Ringer's (Lr) 1,000 mls @ 999 mls/hr IV .Q1H1M KELSEA Stop: 07/22/22 08:15 Last Admin: 07/22/22 06:46 Dose: 999 mls/hr Documented By: SHADI Ondansetron HCl (Ondansetron Hcl 4 Mg/2 Ml Vial) 4 mg IVPUSH ONCE PRN PRN Reason: Nausea and Vomiting Oxycodone HCl (Oxycodone Hcl Immed Release 5 Mg Tablet) 5 mg PO ONCE PRN PRN Reason: Pain, Severe (Pain Scale 7-10) Labs 07/15/22 09:54 07/15/22 09:54 Labs: Laboratory Results - last 24 hr 07/21/22 13:30 COVID-19 (CAROLINE) Negative COVID-19 Clin Com See Note Procedures Date of Service Date of Service: 07/23/22 Progress Note: A&P Assessment and plan (1) Obesity: Status: Acute Assessment and Plan: s/p laparoscopic sleeve gastrectomy and gastropexy Doing well Check am labs. If OK, will discharge home? (2) BMI 34.0-34.9,adult: Status: Acute (3) Hypertension: Status: Acute (4) GERD (gastroesophageal reflux disease): Status: Acute (5) Steatosis, liver: Status: Acute (6) Gallbladder polyp: Status: Acute (7) Asthma: Status: Acute (8) Hepatomegaly: Status: Acute (9) S/P laparoscopic sleeve gastrectomy: Status: Acute Time Spent With Patient Time: Total time managing care of this patient today ____ minutes. Quality Stroke Does the patient have a stroke diagnosis?: No VTE Prior VTE?: No VTE Risk Level:: Surgical - moderate VTE Device Contraindication: N/A - Device Ordered VTE Drug Contraindication: Treatment Not Indicated
[2022-07-22] MEDS: Lactated Ringers 1,000 ML 100 ML IVCONT ×2 (10:53→19:19)
--- NOTE | 2022-07-22 11:00 | PM.DS ---
DS: Providers Provider Date of Service: 07/23/22 Date of admission: 07/22/22 06:10 Primary care physician: Unknown Physician DS: Diagnosis Discharge Diagnosis (1) Obesity: Status: Acute (2) BMI 34.0-34.9,adult: Status: Acute (3) Hypertension: Status: Acute (4) GERD (gastroesophageal reflux disease): Status: Acute (5) Steatosis, liver: Status: Acute (6) Gallbladder polyp: Status: Acute (7) Asthma: Status: Acute (8) Hepatomegaly: Status: Acute (9) S/P laparoscopic sleeve gastrectomy: Status: Acute DS: Summary Hospital Course Hospital Course: ADMITTING DIAGNOSIS: morbid obesity,?asthma, fatty liver, HTN, GERD DISCHARGE DIAGNOSIS: same, s/p laparoscopic sleeve gastrectomy and gastropexy PAST SURGICAL HISTORY:? PROCEDURE: upper endoscopy, laparoscopic sleeve gastrectomy and gastropexy DISCHARGE SUMMARY: History of Present Illness: The patient is a?47 year-old woman with a BMI of? ?36.1 ? kg/m2 and associated co-morbidities as described above. The patient had extensive work-up, lost 10.4 lbs preoperatively and was electively scheduled for laparoscopic, possible open sleeve gastrectomy and gastropexy. Risks and complications of the surgery were discussed with the patient in advance, particularly the possibility of , pulmonary embolism, anastomotic leak, bleeding, bowel injury, GERD, cardiac, renal or pulmonary complications. The patient understood all the risks and was in agreement with the surgical plan. Hospital Course: The patient underwent an uneventful laparoscopic sleeve gastrectomy with gastropexy on the day of admission. Postoperatively, the patient was transferred to the surgical floor. The patient received IV Acetaminophen and IV dilaudid for pain control. Patient was started on bariatric phase 1 diet POD #0. On postoperative day one, the patient was feeling well without nausea, vomiting, fevers, or tachycardia. The patient had some mild incisional pain and the abdomen was soft.? On the morning of postoperative day one, the patient was continued on 1 ounce of water or ice every half hour. During the day, the patient did fairly well, having some incisional pain, but able to ambulate adequately and to tolerate liquids well. Since the patient is doing well, we decided that the patient was ready to be discharged. The patient was given instructions to follow-up with me next week and to call my office for any fever over 101, persistent abdominal pain, nausea, vomiting, GERD, symptoms of DVT such as calf tenderness, or leg swelling, or pulmonary embolism such as chest pain or shortness of breath.? The patient was also instructed to drink 40-60 ounces of liquids per day using the 1-ounce cups. The patient had been given prescriptions for Tylenol for pain, Zofran prn for nausea, and pantoprazole and carafate previously. The patient was encouraged to ambulate and use the incentive spirometer. The patient was allowed to shower, but no baths, and encouraged to stay active at home. She was instructed to continue her home amlodipine and losartan, and hold HCTZ. All of these instructions were given to the patient personally. All questions were answered and the patient understood all instructions, the instructions were also given to the patient in print. Time Spent with Patient Time attestation: Total time managing care of this patient today ____ minutes. Discharge coordination time: Less than 30 minutes Quality: Safe Use of Opioids Does Pt have an Active Cancer Diagnosis on the Problem List?: No Quality: Stroke Does the patient have a stroke diagnosis?: No Physical Exam Vital Signs: Vital Signs: Last Vital Signs Temp 98.6 F 07/22/22 10:38 Pulse 84 07/22/22 10:48 Resp 22 H 07/22/22 10:48 BP 132/74 07/22/22 10:48 Pulse Ox 99 07/22/22 10:48 O2 Del Method 07/22/22 10:48 O2 Flow Rate 3 07/22/22 10:48 BMI result Body Mass Index 36.1 DS: Data Data Completed and Pending Pending studies at discharge: Pending at discharge 07/22/22 09:22 Surgical [PTH] Routine Labs on day of discharge: Laboratory Results - last 24 hr 07/21/22 13:30 COVID-19 (CAROLINE) Negative COVID-19 Clin Com See Note Discharge Plan Discharge Anticipated Discharge Date/Time: 07/23/22 10:00 Patient Disposition: Home, Self-Care Discharge Diagnosis: s/p laparoscopic sleeve gastrectomy with gastropexy Referrals: Physician,Unknown J [Primary Care Provider] - 1 Week Discharge Medications: Continued albuterol sulfate 2.5 mg /3 mL (0.083 %) Solution For Nebulization 2.5 mg INHALATION Q4-6H PRN (Reason: Wheezing) albuterol sulfate 90 mcg/actuation HFA aerosol inhaler 2 puff PO QID pantoprazole 40 mg tablet,delayed release (DR/EC) 40 mg PO DAILY Qty: 30 2RF sucralfate 100 mg/mL suspension 10 ml PO BID Qty: 400 2RF ondansetron HCl 4 mg tablet 4 mg PO Q12H Qty: 20 0RF Rx Instructions: ONLY use if you have nausea as needed Held amlodipine 10 mg tablet 10 mg PO DAILY Hold Instructions: Resume on 07/24/22. Please check your blood pressure daily and report it to Dr. Degroot. Do not take this medication before you hear back from Dr. Degroot. Do not take this medication if your blood pressure is below 120/70 mmHg. losartan 100 mg tablet 100 mg PO DAILY Qty: 30 2RF Hold Instructions: Resume on 07/24/22. Please check your blood pressure daily and report it to Dr. Degroot. Do not take this medication before you hear back from Dr. Degroot. Do not take this medication if your blood pressure is below 120/70 mmHg. hydrochlorothiazide 25 mg tablet 25 mg PO DAILY Qty: 30 2RF Hold Instructions: Resume on 07/23/22. Please check your blood pressure daily and report it to Dr. Degroot. Do not take this medication before you hear back from Dr. Degroot. Do not take this medication if your blood pressure is below 120/70 mmHg. Discontinued ascorbic acid (vitamin C) [Vitamin C] 1,000 mg Tablet 1,000 mg PO DAILY coenzyme Q10 [CoQ-10] 100 mg Capsule 300 mg PO DAILY cholecalciferol (vitamin D3) [Vitamin D3] 50 mcg (2,000 unit) Capsule 50 mcg PO DAILY One Daily Women's 18 mg iron-400 mcg-25 mcg Tablet 1 tab PO DAILY collagen 5,000 PO DAILY polyethylene glycol 3350 [Miralax] 17 gram powder in packet 17 g PO DAILY Qty: 14 0RF Rx Instructions: Mix each packet with 8oz of water and do 7 packets on 07/20/22 and another 7 packets on 07/21/22 Discharge Orders: Discharge Order (Routine); Ordered 07/23/22 Ordered By: Gibson Degroot Activity on Discharge: No heavy lifting Stand Alone Forms: Patient Portal Discharge page Care Plan Goals: weight loss Health Concerns: obesity Plan of Treatment: No tub baths, sex or returning to work until discussed at first post op appointment. No alcohol, tobacco or illegal drug use. Continue to use incentive spirometer hourly while awake. Walk in home for 5- 10 minutes every 2 hours during the first week. Wear abdominal binder with activity. Follow all meal plan instructions from your bariatric surgeon. Review bariatric handbook and call with any questions. Discharge Instructions 1. Please call your doctor or come back to the emergency room should any new symptoms arise. 2. Activity: abstain from alcohol,? limited stair climbing, no bending, no driving, no exercise, no illicit substances, no lifting, no sex, no tub bath, no work. 4. Diet: follow your bariatric surgeons recommendations for advancing diet. 5. Dressing Change/Wound Care: Your incisions are covered with waterproof dressings. You can shower with these and pat dry. Do not rub over dressings or incisions. If the area is tender, you may apply an ice pack for short intervals (no more than 20 minutes on, followed by at least 20 minutes off). Do not apply heat. Do not use creams, lotions, or topical antibiotics unless instructed to do so by your surgeon. 6. Call your doctor if: - Your temperature exceeds 101.5 F - You experience excessive pain or swelling - You have an unexpected reaction to medication - You have excessive bleeding - You experience continued vomiting/nausea - Your incision begins to separate - Your incision shows signs of infection such as increased redness, swelling, excessive pain, heat, or drainage (light blood or clear fluid is normal) General instructions: No lifting greater than 10 lbs for the next 6 weeks[address] within 24 hours of taking narcotic pain medications. If you do not move your bowels in the next 2 days, please take milk of magnesia over the counter. Please follow the post op diet and do not advance your diet until you are seen in the office in about 2 weeks. Please walk around your home every hour or two to prevent blood clots from forming in your legs. You do not need to wake from sleeping to walk. Please sleep in a bed or couch to prevent kinking at the hips and knees. Please take your incentive spirometer (your lung cashier self service gasoline) home with you and use it for the next few days to prevent pneumonias. You may shower, no hot tubs, baths or swimming pools. Please call the office with any questions or concerns such as increasing abdominal pain, fever, chills, shortness of breath, chest pain, leg pain or swelling, or redness or drainage from your incisions. Please make sure you are consuming 40-60 ounces of total fluids per day. Avoid all carbonation. Do not hesitate to contact the office with any questions at . The patient's medical history has been reviewed and they are considered low risk for post op DVT and therefore DVT prophylaxis is not considered necessary. Travel after surgery was reviewed. The patient has not disclosed any travel plans during the first 30 days after surgery and they have been advised that within the first 30 days after surgery any bus, plane, train or car travel over 2 hours in duration is contraindicated due to the possibility of developing blood clots from immobility. Any travel, needs to include periods of ambulation of 10 minutes in duration every 2 hours.? The patient was instructed to discuss any plans for travel during this period with their bariatric surgeon. Assessment: s/p laparoscopic sleeve gastrectomy with gastropexy Discharge Date/Time: 07/23/22 10:16
[2022-07-22] MEDS: Famotidine/PF 20 MG/2 ML VIAL IVPUSH ×2 (11:01→19:19)
[2022-07-22 11:16] LABS: Hemoglobin 13.8 g/dl (12.0-16.0)
[2022-07-22 11:35] LABS: Anion Gap 16 (12-20); Blood Urea Nitrogen 11 mg/dL (9-16); Calcium 8.9 mg/dL (8.4-10.2); Carbon Dioxide 22 mmol/L (22-29); Chloride 104 mmol/L (96-108); Estimated Glomerular Filt Rate > 60; Glucose Random 114 mg/dL (60-115); Potassium 3.6 mmol/L (3.3-5.1); Sodium 138 mmol/L (135-145)
[2022-07-22] MEDS: ondansetron HCL 4 MG/2 ML VIAL IVPUSH ×2 (12:14→19:18)
[2022-07-22] MEDS: ceFAZolin Sodium/Dextrose,Iso 2 GM/50 ML PIGGYBACK IV (13:24)
[2022-07-22] MEDS: Metoclopramide HCl 10 MG/2 ML VIAL IVPUSH (14:09)
[2022-07-22] MEDS: Acetaminophen 1,000 MG/100 ML PIGGYBACK 16.7 MG IV ×2 (14:13→19:18)
--- NOTE | 2022-07-22 15:40 | PHA.MEDREC ---
med rec done by nursing, pharmacy confirmed with pharmacy claim history, patient too drowsy to answer any questions Pharmacy Consult ? Medication Reconciliation Pharmacy has completed the medication reconciliation.
[2022-07-23] MEDS: Acetaminophen 1,000 MG/100 ML PIGGYBACK 16.7 MG IV ×2 (01:18→05:06)
[2022-07-23] MEDS: ondansetron HCL 4 MG/2 ML VIAL IVPUSH (03:23)
[2022-07-23 03:40] VITALS: BP 139/74; PULSE 69; RESP 18; TEMP 37; O2SAT 99
[2022-07-23] MEDS: Lactated Ringers 1,000 ML 100 ML IVCONT (05:05)
[2022-07-23 06:21] LABS: MANUAL DIFF FLAG NO
[2022-07-23 06:29] LABS: Basophils Percent Auto 0.1 % (0-2); Hematocrit 37.2 % (37.0-47.0); Hemoglobin 12.8 g/dl (12.0-16.0); Imm Gran Abs Auto 0.08 X10*3/uL (0.00-0.03); Imm Gran Pct Auto 0.7 % (0.0-0.4); Lymphocytes Percent Auto 8.6 % (20-40); Mean Corpuscular HGB Conc 34.4 g/dl (31.0-35.0); Mean Corpuscular Hemoglobin 28.8 pg (27.0-33.0); Mean Corpuscular Volume 83.8 fL (80.0-98.0); Mean Platelet Volume 11.1 fL (9.4-12.3); Monocytes Absolute Auto 0.4 X10*3/uL (0.1-1.2); Monocytes Percent Auto 3.5 % (2-11); Neutrophils Absolute Auto 10.6 x10*3/uL (2.0-8.3); Neutrophils Percent Auto 87.1 % (45-73); Platelet Count 284 X10*3/uL (160-400); Red Blood Count 4.44 X10*6/uL (4.20-5.50); Red Cell Distribution Width 12.5 % (11.0-16.0); White Blood Count 12.1 X10*3/uL (4.8-10.8)
[2022-07-23 06:44] LABS: Anion Gap 20 (12-20); Blood Urea Nitrogen 8 mg/dL (9-16); Calcium 9.3 mg/dL (8.4-10.2); Carbon Dioxide 18 mmol/L (22-29); Chloride 106 mmol/L (96-108); Creatinine Clr Calc Pharmacy 92.2; Estimated Glomerular Filt Rate > 60; Glucose Random 94 mg/dL (60-115); Potassium 3.7 mmol/L (3.3-5.1); Sodium 140 mmol/L (135-145)
[2022-07-23 07:21] VITALS: O2SAT 97
[2022-07-23 07:54] VITALS: BP 148/71; PULSE 76; RESP 18; TEMP 37.2; O2SAT 98
[2022-07-23] MEDS: Albuterol Sulfate 90 MCG 8 GM INHALER 2 PUFF INHALE (08:06)
[2022-07-23 08:07] VITALS: PULSE 81; RESP 18; O2SAT 97
[2022-07-23] MEDS: Famotidine/PF 20 MG/2 ML VIAL IVPUSH (08:08)
[2022-07-23] MEDS: amLODIPine Besylate 10 MG TABLET PO (08:08)
[2022-07-23] MEDS: Losartan Potassium 50 MG TABLET 100 MG PO (08:09)
--- NOTE | 2022-07-23 14:52 | HO.POSTANES ---
Post Anesthesia Evaluation Post Anesthesia Evaluation Vital Signs: Vital Signs Temp Pulse Resp BP Pulse Ox O2 Del Method 07/23/22 07:21 97 Room Air 07/23/22 08:07 81 18 07/23/22 07:54 99.0 F 76 18 148/71 H 98 Room Air 07/23/22 03:40 98.6 F 69 18 139/74 99 Room Air Anesthesia: General Endotracheal-GETA Mental Status: Awake Pain Control: Satisfactory (mild incisional pain) Nausea/Vomiting: None Hydration: Adequate Anesthesia-Related Issues: No Anes. Related Issues
== END 2022-07-23 10:16 | disposition home or self-care (01) | DRG 621 ==
LOC: HO.SSSA 10:52 → HO.S3 11:07
PROVIDERS: Physician Assistant Surgical; Admitting Provider Surgery; Visit Provider Surgery
PROC: 0DB64Z3 Excision of Stomach, Percutaneous Endoscopic Approach, Vertical (ICD-10-PCS; CPT 43845; principal; 2022-07-22 07:30)
DX: E66.01 Morbid (severe) obesity due to excess calories (principal); K21.9 Gastro-esophageal reflux disease without esophagitis; I10 Essential (primary) hypertension; K82.4 Cholesterolosis of gallbladder; K76.0 Fatty (change of) liver, not elsewhere classified; J45.909 Unspecified asthma, uncomplicated; Z68.34 Body mass index [BMI] 34.0-34.9, adult; Z20.822 Contact with and (suspected) exposure to COVID-19; Z88.6 Allergy status to analgesic agent; Z79.899 Other long term (current) drug therapy
CPT/HCPCS: 36415; 80048; 80053; 80061; 83036; 83525; 84443; 85014; 85018; 85025; 85610; 85730; 86140; 86850; 86900; 86901; 87635; 88307; 88342; 94640; A4649; C9088; J0131; J0690; J1100; J1170; J2250; J2370; J2405; J2550; J2765; J2795; J3010

== ENCOUNTER → 2022-07-28 12:16 | Outpatient (BNVA) | payer OTHER, SELFPAY | PROVIDERS: PCP Internal Medicine; Referring Provider Internal Medicine; Visit Provider Physician Assistant Surgical | DX: Z13.89 Encounter for screening for other disorder (principal) ==

== ENCOUNTER → 2022-08-19 13:20 | Outpatient (BNVA) | payer OTHER, SELFPAY | PROVIDERS: PCP Internal Medicine; Visit Provider Physician Assistant Surgical | DX: Z13.89 Encounter for screening for other disorder (principal) ==

== ENCOUNTER → 2022-09-02 15:42 | Outpatient (BNVA) | payer OTHER, SELFPAY | PROVIDERS: PCP Internal Medicine; Visit Provider Physician Assistant Surgical | DX: Z13.89 Encounter for screening for other disorder (principal) ==

== ENCOUNTER → 2022-10-07 12:47 | Outpatient (BNVA) | payer OTHER, SELFPAY | PROVIDERS: PCP Internal Medicine; Referring Provider Internal Medicine; Visit Provider Physician Assistant Surgical ==

== ENCOUNTER → 2022-11-11 13:47 | Outpatient (BNVA) | payer OTHER, SELFPAY | PROVIDERS: PCP Internal Medicine; Visit Provider Dietitian, Registered | DX: E66.3 Overweight (principal); Z68.28 Body mass index [BMI] 28.0-28.9, adult; Z98.84 Bariatric surgery status; Z71.3 Dietary counseling and surveillance | CPT/HCPCS: 97803 ==

== ENCOUNTER → 2023-01-31 15:45 | Outpatient (BNV) | payer OTHER, SELFPAY | PROVIDERS: Visit Provider Radiology Diagnostic Radiology | DX: Z12.31 Encounter for screening mammogram for malignant neoplasm of breast (principal) | CPT/HCPCS: 77063; 77067 ==

== ENCOUNTER 2023-01-31 15:47 | Outpatient (REF) | payer OTHER, SELFPAY ==
--- NOTE | ~2023-01-31 | MM_ITS ---
EXAMINATION: MM SCREENING DIGITAL BREAST TOMOSYNTHESIS, BILATERAL CLINICAL INFORMATION: Screening. Asymptomatic. COMPARISON: Mammography: This study is compared with prior exams dating back to 2019. TECHNIQUE: Digital breast tomosynthesis is performed in both the craniocaudal and mediolateral oblique views along with computer-aided detection (CAD). Synthesized 2D images are generated from the tomosynthesis. FINDINGS: There are scattered areas of fibroglandular density (ACR BI-RADS breast composition Category b). There are no significant masses, abnormal calcifications, or other abnormalities. There is a tissue marker in the superior aspect of the left breast from prior benign percutaneous biopsy. MM/MM tomosynthesis screening BI IMPRESSION: No mammographic evidence of malignancy. ASSESSMENT: BI-RADS BI-RADS 2 - Benign Findings RECOMMENDATION: Routine annual mammography screening. 1 year F/U This examination should not preclude the clinical evaluation of a suspicious palpable abnormality. This patient's information was entered into a reminder system with a target due date for their next mammogram.
== END 2023-01-31 15:48 | disposition home or self-care (01) ==
LOC: HO.MAMMO 15:47
PROVIDERS: Visit Provider Internal Medicine
DX: Z12.31 Encounter for screening mammogram for malignant neoplasm of breast (principal)
CPT/HCPCS: 77063; 77067

== ENCOUNTER 2024-03-07 10:11 | Outpatient (AMB) | payer OTHER, SELFPAY ==
--- NOTE | 2024-03-07 10:07 | A.OFFVIS_ITS ---
VS Expanded 03/07/24 10:11 Height 5 ft 1 in Weight 170 lb BMI 32.1 Intake Visit Reasons: (TV) PO LSG 07/22/22 Allergies aspirin Allergy (Mild, Verified 10/07/22 12:55) Swelling Medication List - Last Reconciled 03/07/24 by ANAM Montiel albuterol sulfate 2.5 mg inhalation Q4-6H PRN albuterol sulfate 90 mcg/actuation 2 puffs PO QID amlodipine 10 mg PO DAILY HPI Comments Details: This?is a?48?yo female who is s/p LSG 07/22/2022. Presents for 18 month post op visit. Weight at last visit on 07/22/2022 was 150 pounds with a BMI of 28.3, weight today is 170 pounds, representing a 20 pound weight gain with a BMI today of 32.1.? No complaints of nausea, emesis, abdominal pain or reflux, or constipation. Having a lot of stress, in the process of adopting foster kids. This has resulted in weight gain. Present meal plan includes: scrambled eggs with ham salad with chicken eats rice once a week Exercise routine includes: almost 2 months without exercise likes to use bike COUNT INCLUDES THE [facility] Medical History (Updated 10/07/22 @ 13:14 by ANAM Montiel) PONV (postoperative nausea and vomiting) Asthma Hypertension GERD (gastroesophageal reflux disease) Surgical History History of hysterectomy (03/2021) Family History Mother Hypertension Father Heart attack Social History Are you a primary career development engineer to a significant other at home: No Do you presently have visiting nurse or other home services: No Alcohol intake: never Patient Tobacco Use Status: Never used Tobacco Second Hand Smoke Exposure: No Telehealth Telehealth Telehealth Platform: Telephone Location of provider rendering services: other Location of patient: address on file Patient Identification confirmed using: Name, : Yes Telehealth method: voice only Patient verbally consented to treatment: Yes Patient verbally consented to billing insurance company: Yes Patient informed of any privacy concerns related to visit: Yes Minutes spent on Phone/Video with Pt.: 16 Assessment & Plan Assessment & Plan (1) S/P laparoscopic sleeve gastrectomy: Code(s): Z98.84 - Bariatric surgery status Category: Medical (2) Obesity: Code(s): E66.9 - Obesity, unspecified Category: Medical Plan Pt wants to get back on track with meal plan. Each day have 1 Premier premade shake, 2 small meals of 4 forks protein/4 forks veg, and one snack of protein bar or arabic yogurt. Encouraged her to restart bike for exercise, was previously doing 1 hour/day while watching the news. We discussed that a shake/bar based plan would likely result in better pace of weight loss and worked well for her in the past, she will consider this. Pt struggling with stress/emotional eating, specifically requests support for this. Will schedule appt with [facility]. Labs ordered. RTC 3 months. I spent a total of 30 minutes reviewing/updating records, examining the patient and counseling the patient on weight management as detailed above. Orders: Orders Complete Blood Count Auto Diff Today E66.9 - Obesity, unspecified, Z98.84 - Bariatric surgery status Lipid Panel Today E66.9 - Obesity, unspecified, Z98.84 - Bariatric surgery status IRON PROFILE Today E66.9 - Obesity, unspecified, Z98.84 - Bariatric surgery status Vitamin B12 and Folate Today E66.9 - Obesity, unspecified, Z98.84 - Bariatric surgery status C Reactive Protein Today E66.9 - Obesity, unspecified, Z98.84 - Bariatric surgery status Vitamin D 25-OH Total Today E66.9 - Obesity, unspecified, Z98.84 - Bariatric surgery status Insulin Today E66.9 - Obesity, unspecified, Z98.84 - Bariatric surgery status Hemoglobin A1c Today E66.9 - Obesity, unspecified, Z98.84 - Bariatric surgery status Comprehensive Met. Panel Today E66.9 - Obesity, unspecified, Z98.84 - Bariatric surgery status Zinc Today E66.9 - Obesity, unspecified, Z98.84 - Bariatric surgery status Vitamin B1 Today E66.9 - Obesity, unspecified, Z98.84 - Bariatric surgery status Vitamin A Today E66.9 - Obesity, unspecified, Z98.84 - Bariatric surgery status TSH reflex Free T4 Today E66.9 - Obesity, unspecified, Z98.84 - Bariatric surgery status Ferritin Today E66.9 - Obesity, unspecified, Z98.84 - Bariatric surgery status
[2024-03-07 10:11] VITALS: BMI 32.1
== END 2024-03-07 10:25 | disposition home or self-care (01) ==
LOC: HO.HBS 10:11
PROVIDERS: Visit Provider Physician Assistant Surgical
DX: E66.811 Obesity, class 1 (principal); Z68.32 Body mass index [BMI] 32.0-32.9, adult; Z90.3 Acquired absence of stomach [part of]; Z98.84 Bariatric surgery status
CPT/HCPCS: 99442

== ENCOUNTER → 2024-03-07 10:11 | Outpatient (BNVA) | payer OTHER, SELFPAY | PROVIDERS: Visit Provider Physician Assistant Surgical ==

== ENCOUNTER 2024-05-14 15:07 | Outpatient (REF) | payer OTHER, SELFPAY ==
--- OUTSIDE RECORDS SUMMARY | 2024-05-14 15:10 | XMS_ITS | Continuity of Care Document ---
Author Organization [facility] On[facility] Address [address] [place] [address]- Care Team Providers Care Electro Optics Engineer Name Role Phone Cordell BALDERRAMA, Samantha Roberts Primary Care Physician [phone] [id number] Date(s): 12/14/23 - 04/14/24 [facility] Oncology [address] [place] [address] Attending Physician: Pratibha Nicole Admitting Physician: Pratibha Nicole Encounter Type: Pre-OutPatient One Time Allergies, Adverse Reactions, Alerts Substance Criticality Severity Reaction Reaction Severity Status aspirin C/O: a swelling Acti ve Medications Albuterol (Eqv-ProAir HFA) 90 mcg/inh inhalation aerosol 2 puffs, Inhalation, Every 6 hours, 0 Refills, Maintenance, 03/25/21 4:07:00 PM EDT, Partial fill upon patient request if the prescription is for a schedule II opioid drug. Start Date: 03/25/21 Status: Ordered Repeat number: 1 amLODIPine 10 mg oral tablet 1 tablet = 10 mg, By Mouth, Daily, # 30 tablet, 0 Refills, Maintenance, 06/25/15 8:11:37 AM EST, Tablet Start Date: 06/25/15 Status: Ordered Quantity: 30.0 Unit: tablet Repeat number: 1 losartan 25 mg oral tablet 25 mg, 1, tablet, By Mouth, Daily, # 30 tablet, Refills 0, Maintenance, 10/10/20 12:53:00 PM EDT, Partial fill upon patient request if the prescription is for a schedule II opioid drug. Start Date: 10/10/20 Status: Ordered Quantity: 30.0 Unit: tablet Repeat number: 1 Multivitamin Daily, 0 Refills, Maintenance, 03/25/21 4:05:00 PM EDT, Partial fill upon patient request if the prescription is for a schedule II opioid drug. Start Date: 03/25/21 Status: Ordered Repeat number: 1 Sudhakar Readi-Cat 2 oral suspension See Instructions, If scan before 12pm drink 1st drink night before prior to midnight & 2nd drink 90mins before.If scan after 12pm drink first drink before 8am and 90mins before.If scan after 4pm drink first drink 6hrs and 90mins before., # 2 each, 0 Refills, Maintenance, 10/15/21 8:48:00 AM EDT,[facility]/pharmacy #[id number], Partial fill upon patient request if the prescription is for a schedule II opioid drug., If scan before 12pm drink 1st drink night before prior to midnight & 2nd drink 90mins before.If scan after 12pm drink first drink before 8am and 90mins before.If scan after 4pm drink first drink 6hrs and 90mins before., 154.3, cm, 10/13/21 11:05:00 EDT, Height, 89.5, kg, 10/13/21 11:05:00 EDT, Dry Weight Start Date: 10/15/21 Status: Ordered Quantity: 2.0 Unit: each Repeat number: 1 Vitamin D3 2000 intl units oral tablet 1 tablet = 2,000 International_Units, By Mouth, Daily, 0 Refills, Maintenance, 08/26/15 12:55:11 PM EDT Start Date: 08/26/15 Status: Ordered Repeat number: 1 Problem List Condition Confirmation Course Effective Dates Status Health St atus Informant Hypertension Confirmed Active Endometrial cancer, grade I Confirmed Active Obese class II Confirmed Active Social History Social History Type Response Smoking Status Never smoker entered on: 06/25/15 Sex Sex Representation Female (finding) Patient Care team information Care Team Personnel Name: Samantha Landa MD Position: [facility] Outreach Member Role: PCP Address: [address] [place] [address]- Telecom: Name: Bernice Nicole RN Position: [facility] RN Member Role: Primary Care Nurse Name: Bradly Gomez MD Position: [facility] Renal MD Member Role: Lifetime Consulting Physician Address: [address] [facility] [place], [place] [address] Telecom: Care Team Related Persons Name: MARCELINO ESPINOZA Name: MARCELINO GRIMALDO Insurance Providers Guarantor name: LUCAS PATEL Health Plan Information #: 1 Payer: Angle POS Member Number: [id number] Policy Number: NA Group Number: [id number] Health Plan Information #: 2 Payer: [employer] JungleO POS Member Number: [id number] Policy Number: NA Group Number: [id number]
--- OUTSIDE RECORDS SUMMARY | 2024-05-14 15:10 | XMS_ITS | Continuity of Care Document ---
Author Organization [facility] Address [address] [place] [address]- Care Team Providers Care Critical Care Physician Name Role Phone Cordell BALDERRAMA, Samantha Roberts Primary Care Physician En[place] [facility](s): 03/15/24 - 04/14/24 [facility] AIDE Oncology [address] [place] [address]- Attending Physician: Carol Kovacs Admitting Physician: Carol Kovacs Referring Physician: AdmtrCarol Encounter Type: Triage Allergies, Adverse Reactions, Alerts Substance Criticality Severity [...] each, 0 Refills, Maintenance, 10/15/21 8:48:00 AM EDT,[facility]/pharmacy #[id number], Partial fill upon patient request if [...] Team Personnel Name: Samantha Landa MD Position: [facility] Outreach Member Role: PCP Address: [address] [place] [address]- Telecom: Name: Bernice Nicole RN Position: [facility] RN Member Role: Primary Care Nurse Name: Bradly Gomez MD Position: [facility] Renal MD Member Role: Lifetime Consulting Physician Address: [address] [facility] [place], [place] [address] Telecom: Care Team Related Persons Name: MARCELINO ESPINOZA Name: MARCELINO GRIMALDO Insurance Providers Guarantor name: LUCAS PATEL Health Plan Information #: 1 Payer: NEIL O POS Member Number: NA Policy Number: NA Group Number: NA
== END 2024-05-14 15:08 | disposition home or self-care (01) ==
LOC: HO.MAMMO 15:07
PROVIDERS: PCP Internal Medicine; Visit Provider Internal Medicine
DX: Z12.31 Encounter for screening mammogram for malignant neoplasm of breast (principal)
CPT/HCPCS: 77063; 77067

== ENCOUNTER → 2024-05-14 15:15 | Outpatient (BNV) | payer OTHER, SELFPAY | PROVIDERS: PCP Internal Medicine; Visit Provider Internal Medicine | DX: Z12.31 Encounter for screening mammogram for malignant neoplasm of breast (principal) | CPT/HCPCS: 77063; 77067 ==

== ENCOUNTER 2024-06-12 09:49 | Outpatient (AMB) | payer OTHER, SELFPAY ==
--- NOTE | 2024-06-12 09:47 | A.OFFVIS_ITS ---
VS Expanded 06/12/24 09:51 Height 5 ft 1 in Weight 168 lb BMI 31.7 Intake Visit Reasons: TELEPHONE PO LSG 07/22/22 Allergies aspirin Allergy (Mild, Verified 10/07/22 12:55) Swelling Medication List - Last Reconciled 06/12/24 by ANAM Montiel albuterol sulfate 2.5 mg inhalation Q4-6H PRN albuterol sulfate 90 mcg/actuation 2 puffs PO QID amlodipine 10 mg PO DAILY simethicone (Gas Relief (simethicone)) 80 mg PO TID-QID PRN HPI Comments Details: This?is a?49?yo female who is s/p LSG 07/22/2022. Presents for 1 year 10 month post op visit. Weight at last visit on 03/07/2024 was 170 pounds with a BMI of 32.1, weight today is 168 pounds, representing a 2 pound weight loss with a BMI today of 31.7.? No complaints of nausea, emesis, abdominal pain or reflux, or constipation. Was in the process of adoption for 2 children, hoping to be official in 2-3 months. Present meal plan includes: 1 Premier premade shake, 2 small meals of 4 forks protein/4 forks veg, and one s nack of protein bar or v[place] citizen yogurt -has been eating a small portion of overnight oats and coffee, lunch- chicken and rice, dinner- cauliflower and asparagus with chicken -thinks she is still a little low in protein intake, also likes eggs for breakfast Exercise routine includes: using bike 1 hour watching the news [facility] Medical History (Updated 10/07/22 @ 13:14 by ANAM Montiel) PONV (postoperative nausea and vomiting) Asthma Hypertension GERD (gastroesophageal reflux disease) Surgical History History of hysterectomy (03/2021) Family History Mother Hypertension Father Heart attack Social History Are you a primary aged or disabled carer to a significant other at home: No Do you presently have visiting nurse or other home services: No Alcohol intake: never Patient Tobacco Use Status: Never used Tobacco Second Hand Smoke Exposure: No Telehealth Telehealth Telehealth Platform: Telephone Location of provider rendering services: practice address Location of patient: address on file Patient Identification confirmed using: Name, : Yes Telehealth method: voice only Patient verbally consented to treatment: Yes Patient verbally consented to billing insurance company: Yes Patient informed of any privacy concerns related to visit: Yes Minutes spent on Phone/Video with Pt.: 15 Assessment & Plan Assessment & Plan (1) Obesity: Code(s): E66.9 - Obesity, unspecified Category: Medical (2) S/P laparoscopic sleeve gastrectomy: Code(s): Z98.84 - Bariatric surgery status Category: Surgical Plan Sent pt options for protein water, goal 70g protein day. She prefers not to use bars/shakes, has grown tired of them. She has resumed exercise. Reminded to have labs drawn. RTC 3 months. I spent a total of 30 minutes reviewing/updating records, examining the patient and counseling the patient on weight management as detailed above. Medications: New simethicone (Gas Relief (simethicone)) 80 mg PO TID-QID PRN 90 tabs 2RF abdominal distention
[2024-06-12 09:51] VITALS: BMI 31.7
--- OUTSIDE RECORDS SUMMARY | 2024-06-12 10:51 | XMS_ITS | Patient Health Record ---
Author Organization [employer] [facility] Address [address] [place] [address] Care Team Providers Care Fire Management Specialist Name Role Phone Kathe Horvath Unavailable [phone] Reason For Referral No Information Medications Medication SIG (Take, Route, Frequency, Duration) Notes Start Date End Date Status Norvasc 5MG 1 ORAL daily for -3 [facility] 12/22/2011 Active Vitamins 1 mg folate 1 ORAL daily for -3 [facility] 07/18/2012 Active Immunizations Vaccine Route Administration Date Status Comme nts Influenza, live, intranasal Intramuscular 06/23/2011 Pendi ng Tdap Intramuscular 06/23/2011 Pending Problems Problem Type SNOMED Code ICD Code Onset Dates Problem Status W/U Status Risk Notes Problem Anxiety state (661616529) Anxiety state, unspecified (300.00) Active confirmed Major Problem Migraine (disorder) (14670462) Migraine, unspecified without mention of intractable migraine without mention of status migrainosus (346.90) Active confirmed Diag Problem Benign essential hypertension (5784169) Essential hypertension, benign (401.1) Active confirmed Diag Problem Essential hypertension (20774081) Unspecified essential hypertension (401.9) Active confirmed Major Problem Palpitations (37961011) Palpitations (785.1) Active confirmed Diag Problem Cervicovaginal cytology: Low grade squamous intraepithelial lesion (063067890) Papanicolaou smear of cervix with low grade squamous intraepithelial lesion (LGSIL) (795.03) Active confirmed Major Problem Elevated blood pressure reading without diagnosis of hypertension (968982204) Elevated blood pressure reading without diagnosis of hypertension (796.2) Active confirmed Major Problem Gynecological examination normal (521981949492130) Routine gynecological examination (V72.31) Active confirmed Diag Problem Contraception care education (723247158) Other general counseling and advice for contraceptive management (V25.09) Active confirmed Diag Problem Dietary management surveillance (745709460) Dietary surveillance and counseling (V65.3) Active confirmed Diag Problem Exercises teaching, guidance, and counseling (779348375) Exercise counseling (V65.41) Active confirmed Diag Problem Counseling for substance abuse (249103794) Counseling on substance use and abuse (V65.42) Active confirmed Diag Plan Of Treatment No Information Insurance Providers Payer Name Payer Address Payer Phone Subscriber Number Group Number Insured Name Patient Relationship to Insured Coverage Start Date Coverage End Date [employer] [address] [address] [place] [address] [id number] LUCAS PATEL Self - patient is the insured
--- OUTSIDE RECORDS SUMMARY | 2024-06-12 10:51 | XMS_ITS | Clinical Summary ---
Author Organization [facility] Address [address] [place] [address] Care Team Providers Care Packing Supervisor Name Role Phone Janneth Ramos DMD Primary Care Provider [phone] Source Comments PLEASE NOTE, if this patient is a minor, it may be UNLAWFUL to discuss sensitive information that is contained in these records (such as FAMILY PLANNING, MENTAL HEALTH or SUBSTANCE ABUSE) with the minor patient's parent or other person without the patient's specific authorization.[facility] Medications No known medications Active Problems No known active problems Social History Tobacco Use Types Packs/Day Years Used Date Smoking Tobacco: Never Smokeless Tobacco: Never Tobacco Cessation:Counseling Given: Not Answered Social Connections Answer Date Recorded Connectedness 0 02/10/2024 Financial Resource Strain Answer Date R ecorded Financial Resource Strain 0 2022 Stress Answer Date Recorded Stress 0 12/02/2022 Physical Activity Answer Date Recorded Physical Activity 0 12/02/2022 Food Insecurity Answer Date Recorded Food 0 02/16/2024 Transportation Needs Answer Date Record ed Transportation 0 12/02/2022 Housing Stability Answer Date Recorded Housing 0 12/02/2022 Safety and Environment Answer Date Jose Luis rded Safety 0 12/02/2022 Utilities Answer Date Recorded Utilities 0 12/02/2022 Employment Answer Date Recorded Stress 0 02/10/2024 Comments Unknown Sex and Gender Information Value Date Recorded Sex Assigned at Not on file Legal Sex Female 7:12 AM PDT Gender Identity Not on file Sexual Orientation Not on file Last Filed Vital Signs Vital Sign Reading Time Taken Comments Blood Pressure 151/97 07/12/2023 3:19 PM EST Pulse 78 07/12/2023 3:19 PM EST Temperature - - Respiratory Rate - - Oxygen Saturation - - Inhaled Oxygen Concentration - - Weight - - Height - - Body Mass Index - - Plan of Treatment Health Maintenance Due Date Last Done Comments Dental FMX/Pano 1977 Diabetes Screening 1977 HPV Screening 1977 Hepatitis C Screening 1977 Lipid Screening 1977 Pap + HPV 1977 HIV Screening 1992 Relationship Safety Screening/Counseling 1992 Annual Preventive Care Visit 1995 Imm-DTaP/Tdap/Td (1 - Tdap) 1996 Imm-Hepatitis B (1 of 3 - 19 + 3-dose series) 1996 Cervical Cancer Screening 1998 Pap Smear 1998 Breast Cancer Screening (Mammogram) 2017 CT Colonography 2022 Colonoscopy 2022 Colorectal Cancer Screening 2022 FIT/gFOBT 2022 Fecal DNA 2022 Flexible Sigmoidoscopy 2022 Dental BW 12/05/2023 12/02/2022 Dental Examination 12/05/2023 12/02/2022 Dental Perio Charting 12/05/2023 12/02/2022 [id number] ( season) 2024 Imm-Influenza (#1) 2024 Alcohol and Drug Screen 05/23/2024 Depression Annual Screen 05/23/2024 Dental Prophy 06/17/2024 06/15/2023, 12/02/2022 Hypertension Screening (#1) 07/11/2024 Tobacco Screening 07/12/2024 07/12/2023 Cervical Ablation/Cold-Knife Conization Discontinued Cervical Cryotherapy Discontinued Colposcopy Discontinued Endometrial Biopsy Discontinued Excision/Leep Discontinued HPV Genotyping Discontinued Vaginal Pap Discontinued Vulvoscopy Discontinued Procedures Procedure Name Priority Date/Time Associated Diagnosis Comments Full PROPHYLAXIS - ADULT Routine 06/15/2023 1:00 PM EST Stage 2 grade B localized periodontitis per AAP/EFP 2017 classification COMP PERIODONTAL EVALUATION - NEW/EST PATIENT Routine 12/02/2022 3:00 PM EDT Encounter for dental examination and cleaning without abnormal findings BITEWINGS - FOUR RADIOGRAPHIC IMAGES Routine 12/02/2022 3:00 PM EDT Chronic gingivitis, plaque induced Fractured dental orthodoxy with loss of material Encounter for dental examination and cleaning without abnormal findings Stage 2 grade B localized periodontitis per AAP/EFP 2017 classification PERIODIC ORAL EVALUATION ESTABLISHED PATIENT Routine 12/02/2022 3:00 PM EDT Chronic gingivitis, plaque induced Encounter for dental examination and cleaning without abnormal findings Stage 2 grade B localized periodontitis per AAP/EFP 2017 classification from Last 3 Months or Most Recently Relevant to Health Maintenance Care Teams Packing Supervisor Relationship Specialty Start Date End Date Janneth Ramos DMD [address] [place] [address] PCP - General 08/01/20
== END 2024-06-12 10:06 | disposition home or self-care (01) ==
LOC: HO.HBS 09:49
PROVIDERS: PCP Internal Medicine; Visit Provider Physician Assistant Surgical
DX: E66.9 Obesity, unspecified (principal); Z98.84 Bariatric surgery status
CPT/HCPCS: 99214

== ENCOUNTER → 2024-06-12 09:49 | Outpatient (BNVA) | payer OTHER, SELFPAY | PROVIDERS: PCP Internal Medicine; Visit Provider Physician Assistant Surgical ==

== ENCOUNTER 2025-03-29 08:10 | Day surgery (SDC) | payer OTHER, SELFPAY ==
--- OUTSIDE RECORDS SUMMARY | 2025-02-26 14:23 | XMS_ITS | Patient Health Record ---
Author Organization [facility] Address [address] [place] [phone] Care Team Providers Care Land Manager Name Role Phone John Landama Primary Care Provider Unavailab Glynn Kennedy [phone] Allergies No Known Allergies Reason For Referral No Information Medications Medication SIG (Take, Route, Frequency, Duration) Notes Start Date End Date Status Losartan Potassium 10 MG/ML as directed Orally Active amLODIPine Besylate 5 MG 1 tablet Orally Once a day Active Social History Tobacco Use: Social History Observation Description Date Details (start date - stop date) Never Smoker NA - NA Tobacco Control (Standard) Question Answer Notes Tobacco use: Nonsmoker AUDIT-C (Standard) Question Answer Notes Did you have a drink containing alcohol in the p ast year? No Points 0 Interpretation Negative Section Notes: Nonsmoker; no alcohol Problems Problem Type SNOMED Code ICD Code Onset Dates Problem Status W/U Status Risk Notes Problem Colon cancer screening (786193289) Colon cancer screening (Z12.11) Active confirmed Problem Preprocedural examination (906566186158612) Preprocedural examination (Z01.818) Active confirmed Vital Signs Heart Rate 84 /min 01/02/2025 Blood pressure diastolic 01 mm Hg 01/02/2025 Height 61.5 in 01/02/2025 Blood pressure systolic 01 mm Hg 01/02/2025 Weight 177.8 lbs 01/02/2025 BMI 33.05 kg/m2 01/02/2025 Procedures Procedure Date Ordered Date Performed Result Body Sit e COLONOSCOPY 01/02/2025 N/A Encounters Encounter Location Date Provider Diagnosis [facility] [address] [place] [phone] 01/02/2025 Glynn Ho Colon cancer screeni ng Z12.11 and Preprocedural examination Z01.818 Assessments Encounter Date Diagnosis (ICD Code) Assessment Notes Treatment Notes Treatment Clinical Notes Section Notes 01/02/2025 Colon cancer screening (ICD-10 - Z12.11) Overall, Lucas appears well. She is not having any new or worrisome GI complaints. Given her age and good clinical appearance I did recommend a colonoscopy for screening purposes. We did review the rationale for this in regard to colon cancer prevention. Full consent has been obtained for this, including risks of bleeding and perforation. The procedure will be done with monitored anesthesia care. Lucas was comfortable with this plan. Thank you again for allowing me to participate in Lucas's care. I shall continue to keep you advised of her progress. 01/02/2025 Preprocedural examination (ICD-10 - Z01.818) Overall, Lucas appears well. She is not having any new or worrisome GI complaints. Given her age and good clinical appearance I did recommend a colonoscopy for screening purposes. We did review the rationale for this in regard to colon cancer prevention. Full consent has been obtained for this, including risks of bleeding and perforation. The procedure will be done with monitored anesthesia care. Lucas was comfortable with this plan. Thank you again for allowing me to participate in Lucas's care. I shall continue to keep you advised of her progress. Plan Of Treatment Pending Test Test Name Order Date COLONOSCOPY 01/02/2025 Next Appt Details Provider Name:Glynn Ho , 03/29/2025 11:30:00 AM, [address] [place] [address] , [place], [place], [phone], Insurance Providers Payer Name Payer Address Payer Phone Subscriber Number Group Number Insured Name Patient Relationship to Insured Coverage Start Date Coverage End Date [employer]IL [employer]ON [id number] [place], [place] [address] [id number] LUCAS PATEL Self - patient is the insured 1 Medical (General) History Medical History History ICD Code HTN Asthma Denies PR,DM,CVA,renal disease Endometrial cancer-Stage 1-s urgery as below with Hysterectomy---History from PCP's office note Surgical History Surgery Date(Month/Year) Hysterectomy 2021 Bariatric surgery 2023--Gastric Sleeve-a t [facility]-80_# weight loss
--- OUTSIDE RECORDS SUMMARY | 2025-02-26 14:23 | XMS_ITS | Clinical Summary ---
Author Organization [facility] Address [address] [place] [address] Care Team Providers Care Continuous Pillowcase Cutter Name Role Phone Janneth Ramos DMD Primary Care Provider [phone] Source Comments PLEASE NOTE, if this patient [...] Health Maintenance Due Date Last Done Comments Anxiety Screening 1977 Dental FMX/Pano 1977 Diabetes Screening 1977 HPV Screening 1977 Hepatitis C Screening 1977 Lipid Screening 1977 Pap + HPV 1977 Tobacco Screening 1977 HIV Screening 1992 Relationship Safety Screening/Counseling 1992 Imm-DTaP/Tdap/Td (1 - Tdap) 1996 Imm-Hepatitis B (1 of 3 - 19 + 3-dose series) 1996 Cervical Cancer Screening 1998 Pap Smear 1998 Breast Cancer Screening (Mammogram) 2017 CT Colonography 2022 Colonoscopy 2022 Colorectal Cancer Screening 2022 FIT/gFOBT 2022 Fecal DNA 2022 Flexible Sigmoidoscopy 2022 Dental BW 12/05/2023 12/02/2022 Dental Examination 12/05/2023 12/02/2022 Dental Perio Charting 12/05/2023 12/02/2022 Alcohol and Drug Screen 05/23/2024 Depression Annual Screen 05/23/2024 Dental Prophy 06/17/2024 06/15/2023, 12/02/2022 Hypertension Screening (#1) 07/11/2024 [id number] ( season) 2025 Imm-Influenza (#1) 2025 Cervical Ablation/Cold-Knife Conization Discontinued Cervical Cryotherapy Discontinued [...] EDT Chronic gingivitis, plaque induced Fractured dental congregation with loss of material Encounter for dental [...] or Most Recently Relevant to Health Maintenance Insurance [employer] Care Teams Continuous Pillowcase Cutter Relationship Specialty Start Date End Date Janneth Ramos DMD [address] [place] [address] PCP - General 08/01/20
--- OUTSIDE RECORDS SUMMARY | 2025-02-26 14:23 | XMS_ITS | Patient Health Record ---
Author Organization [employer] [facility] Address [address] [place] [address] Care Team Providers Care Stationary Engineer Refrigeration Name Role Phone Kathe Horvath Unavailable [phone] Reason For Referral No Information Medications Medication SIG (Take, Route, Frequency, Duration) Notes Start Date End Date Status Norvasc 5MG 1 ORAL daily; Durati on: -3 Tim-MJ 12/22/2011 Active Vitamins 1 mg folate 1 ORAL daily; Duration: -3 Tim-MJ 07/18/2012 Active Immunizations Vaccine Route Administration Date Status Comme nts Influenza, live, intranasal Intramuscular 06/23/2011 Pendi ng Tdap Intramuscular 06/23/2011 Pending Problems Problem Type SNOMED Code ICD Code Onset Dates Problem Status W/U Status Risk Notes Problem Anxiety state (049838628) Anxiety state, unspecified (300.00) Active confirmed Major Problem Migraine (disorder) (47090687) Migraine, unspecified without mention of intractable migraine without mention of status migrainosus (346.90) Active confirmed Diag Problem Benign essential hypertension (3956979) Essential hypertension, benign (401.1) Active confirmed Diag Problem Essential hypertension (75221245) Unspecified essential hypertension (401.9) Active confirmed Major Problem Palpitations (14294244) Palpitations (785.1) Active confirmed Diag Problem Cervicovaginal cytology: Low grade squamous intraepithelial lesion (037742671) Papanicolaou smear of cervix with low grade squamous intraepithelial lesion (LGSIL) (795.03) Active confirmed Major Problem Elevated blood pressure reading without diagnosis of hypertension (236009095) Elevated blood pressure reading without diagnosis of hypertension (796.2) Active confirmed Major Problem Gynecological examination normal (667105638027102) Routine gynecological examination (V72.31) Active confirmed Diag Problem Contraception care education (151573597) Other general counseling and advice for contraceptive management (V25.09) Active confirmed Diag Problem Dietary management surveillance (782413179) Dietary surveillance and counseling (V65.3) Active confirmed Diag Problem Exercises teaching, guidance, and counseling (579256720) Exercise counseling (V65.41) Active confirmed Diag Problem Counseling for substance abuse (378128729) Counseling on substance use and abuse (V65.42) Active confirmed Diag Plan Of Treatment No Information Insurance Providers Payer Name Payer Address Payer Phone Subscriber Number Group Number Insured Name Patient Relationship to Insured Coverage Start Date Coverage End Date [employer] [address] [address] [place] [address] [id number] LUCAS PATEL Self - patient is the insured
--- NOTE | 2025-03-27 11:57 | HO.ANESPROP2 ---
Documented by User: Charity Jay NP 03/27/25 11:58 HPI - Anesthesia Eval Consult details Narrative: 50 yr old female for colonoscopy PONV PMFSH Active Problems Active Problems: All Active Problems Overweight (Acute) S/P laparoscopic sleeve gastrectomy (Acute) Hepatomegaly (Acute) Asthma (Acute) Gallbladder polyp (Acute) Steatosis, liver (Acute) Epidermal inclusion cyst (Acute) Obesity (Acute) BMI 38.0-38.9,adult (Acute) Adjustment disorder, unspecified (Acute) BMI 37.0-37.9, adult (Acute) BMI 36.0-36.9,adult (Acute) Hypertension (Acute) GERD (gastroesophageal reflux disease) (Acute) Past Medical History Medical History Endometrial cancer PONV (postoperative nausea and vomiting) Asthma Hypertension GERD (gastroesophageal reflux disease) Family History Family History Mother Hypertension Father Heart attack Family history of problems with anesthesia: No Surgical History Surgical History Hx of bariatric surgery (~2023) History of hysterectomy (03/2021) History of Problems with Anesthesia: No Social History Social History Are you a primary date night caregiver to a significant other at home: No Do you presently have visiting nurse or other home services: No Alcohol intake: never Patient Tobacco Use Status: Never used Tobacco Second Hand Smoke Exposure: No Have you been hit, kicked, punched, or otherwise hurt by someone within the past year? If so, by whom?: No Advance Directives: No Advance Directives Information Provided: Yes Meds Allergies Allergy/AdvReac Type Severity Reaction Status Date / Time aspirin Allergy Mild Swelling Verified 03/29/25 09:10 Home Medications ?Medication ?Instructions ?Recorded ?Confirmed ?Last Taken ?Type amlodipine 5 mg tablet 5 mg PO DAILY 03/27/25 03/27/25 03/29/25 History losartan 50 mg tablet 50 mg PO DAILY 03/27/25 Unknown History Assessment and Plan Final Anesthetic Review Family History of Problems with Anesthesia: No History of Problems with Anesthesia: No Documented by User: Maddi Santana MD 03/29/25 10:00 [facility] Past Medical History Medical History Endometrial cancer PONV (postoperative nausea and vomiting) Asthma Hypertension GERD (gastroesophageal reflux disease) Family History Family History Mother Hypertension Father Heart attack Surgical History Surgical History Hx of bariatric surgery (~2023) History of hysterectomy (03/2021) Social History Social History Are you a primary date night caregiver to a significant other at home: No Do you presently have visiting nurse or other home services: No Alcohol intake: never Patient Tobacco Use Status: Never used Tobacco Second Hand Smoke Exposure: No Have you been hit, kicked, punched, or otherwise hurt by someone within the past year? If so, by whom?: No Advance Directives: No Advance Directives Information Provided: Yes Meds Allergies Allergy/AdvReac Type Severity Reaction Status Date / Time aspirin Allergy Mild Swelling Verified 03/29/25 09:10 Home Medications ?Medication ?Instructions ?Recorded ?Confirmed ?Last Taken ?Type amlodipine 5 mg tablet 5 mg PO DAILY 03/27/25 03/27/25 03/29/25 History losartan 50 mg tablet 50 mg PO DAILY 03/27/25 Unknown History Exam Airway Mallampati Class: II TM Dist: >3cm Neck ROM: Full Heart: rrr Lungs: cta Assessment and Plan Assessment Anesthesia Assessment: Anesthesia Plan Discussed and Chart Reviewed Final Anesthetic Review NPO: Yes ASA Class: III Final Preanesthetic Review: No Changes in Pt Med Stat, Meds/Allgs Chart Reviewed, Consent Obtained/Reviewed and Anes Risks/Benef Reviewed Patient Risk: Intermediate Procedure Risk: Low Anesthetic Plan Anesthetic Plan: MAC: Disposition: Standard PACU
[2025-03-27 13:54] VITALS: BMI 32.9
[2025-03-29 09:08] VITALS: BMI 32.5
[2025-03-29] MEDS: Lactated Ringers 1,000 ML 100 ML IVCONT (09:16)
[2025-03-29 09:17] VITALS: BP 151/68; PULSE 88; RESP 18; TEMP 36.6; O2SAT 98
[2025-03-29 11:57] VITALS: BP 114/64; PULSE 76; RESP 16; TEMP 36.6; O2SAT 97
--- NOTE | 2025-03-29 12:02 | PM.OP ---
Brief Operative Note Date of Service: 03/29/25 Pre-op diagnosis: Screening Post-op diagnosis: other (Internal hemorrhoids, Limited colonoscopy prep) Procedure: Colonoscopy to the cecum Surgeon: Glynn Ho MD Anesthesia: MAC Was an Manager Security And Safety used for this Procedure?: No Estimated blood loss (mL): 0 Pathology: none sent Condition: stable Disposition: PACU
[2025-03-29 12:12] VITALS: BP 127/73; PULSE 71; RESP 16; O2SAT 99
[2025-03-29 12:27] VITALS: BP 128/75; PULSE 74; RESP 19; TEMP 36.8; O2SAT 100
--- NOTE | 2025-03-29 12:33 | OP_ITS ---
DATE OF SERVICE: 03/29/2025 SURGEON: Glynn Ho MD INDICATIONS: The patient presents for evaluation of colorectal cancer screening. Full consent has been obtained from her for this, including risks of bleeding and perforation. PREOPERATIVE DIAGNOSIS: Colorectal cancer screening. POSTOPERATIVE DIAGNOSIS: PROCEDURE PERFORMED: Colonoscopy to the cecum. ESTIMATED BLOOD LOSS: COMPLICATIONS: ANESTHESIA: Medication used, monitored anesthesia care. ASSISTANTS: SPECIMENS: POSTOPERATIVE DIAGNOSES: Colorectal cancer screening, limited bowel prep, internal hemorrhoids. DESCRIPTION OF PROCEDURE: The patient was placed in the left lateral decubitus position. The digital rectal exam revealed no abnormalities. The Olympus video pediatric colonoscope was entered into the rectum and advanced easily to the cecum. Once in the cecum, after a lot of irrigation and suctioning, I did visualize the cecum well including the appendiceal orifice. The cecum and the ileocecal valve appeared normal. The scope was then slowly withdrawn assessing all mucosal surfaces carefully. Preparation in different parts of the colon was limited with some solid and liquid stool. I did not visualize any sign of polyps, colitis, nor angiodysplasia. However, visualization was limited. In the rectum, scope was retroflexed visualizing internal hemorrhoids, but no other pathology. The rectal mucosa appeared normal. Scope was straightened and withdrawn from the patient. She tolerated the procedure well and was returned to the recovery area in stable condition. IMPRESSION: Limited colonoscopy prep, internal hemorrhoids. PLAN: Given the limited prep, I would recommend a repeat colonoscopy within 5 years. However, I would recommend a Cologuard test as well, and if that was positive, we would then do a colonoscopy sooner, but with a better clean out. She will otherwise see me as needed. MD JANIA Schreiber/[facility] / [id number]
== END 2025-03-29 12:44 | disposition home or self-care (01) ==
PROVIDERS: PCP Internal Medicine; Visit Provider Internal Medicine
PROC: 0DJD8ZZ Inspection of Lower Intestinal Tract, Via Natural or Artificial Opening Endoscopic (ICD-10-PCS; CPT 45378; principal; 2025-03-29 10:30)
DX: Z12.11 Encounter for screening for malignant neoplasm of colon (principal); K64.8 Other hemorrhoids
CPT/HCPCS: 45378; J2704